=== PATIENT | male | born 1960 | race Caucasian/White ===

== ENCOUNTER 2020-12-10 21:08 | Emergency (ER) | payer BC, OTHER ==
[2020-12-10] MEDS ORDERED: Lidocaine 1% with EPINEPHrine 1:100,000 20 ML MDV INJECT ONE (21:31)
[2020-12-10] MEDS ORDERED: Bupivacaine 0.5% 10 ML SDV INJECT ONE (21:31)
[2020-12-10] MEDS ORDERED: Lidocaine 1% with EPINEPHrine 1:100,000 10 ML MDV ONE (21:36)
[2020-12-10] MEDS ORDERED: Lisinopril 10 MG Tab PO ONE (21:38)
[2020-12-10] MEDS ORDERED: Hydrochlorothiazide 12.5 MG Cap PO STA (21:39)
--- NOTE | 2020-12-10 21:44 | EDM.PDOC ---
ED HPI GENERAL MEDICAL PROBLEM - General Chief Complaint: Laceration Stated Complaint: FELL AND HIT HEAD AND FACE ON WINDOW Time Seen by Provider: 12/10/20 21:18 Source of Information: Reports: Patient, Family (Sister + niece) History Limitations: Reports: No Limitations - History of Present Illness INITIAL COMMENTS - FREE TEXT/NARRATIVE: Mr. Cornejo is a very pleasant 60-year-old gentleman who now presents the ED stating that he tripped and fell at home around 19:30 this evening, striking his left forehead on the edge of a window frame, causing a laceration. He was not knocked unconscious. He denies having a headache. He states that he fell because he has difficulty walking due to chronic hip pain. The patient acknowledged that he drank 3 beers tonight, stating that that is normal for him on weekends. The patient reports that his last tetanus vaccination was about 6 years ago. Here in the ED, the patient's initial BP is found to be significantly elevated at 220/108, otherwise, he is hemodynamically stable, afebrile, saturating 98% on room air. He appears to be comfortable, in no acute distress. He states that he has a history of hypertension, untreated for the past 6 years. The patient reports that he falls often, due to chronic hip and shoulder pain. Otherwise, the patient denies having a recent fever, chills, sore throat, ear pain, nasal or sinus congestion, cough, dyspnea, chest pain, palpitations, nausea, vomiting, constipation, diarrhea, abdominal pain, urinary symptoms, recent weight gain or weight loss, recent bloody bowel movements or black bowel movements, headaches, or rashes. The patient does not have a PCP. - Related Data Allergies Allergy/AdvReac Type Severity Reaction Status Date / Time No Known Allergies Allergy Verified 12/10/20 21:18 Home Meds: Home Meds Acetaminophen [Tylenol Extra Strength] 500 mg PO DAILY 12/10/20 [History] Lisinopril/Hydrochlorothiazide [Lisinopril-HCTZ 10-12.5 MG] 1 tab PO BEDTIME #30 tablet 12/10/20 [Rx] Past Medical History Cardiovascular History: Reports: Hypertension (untreated) - Past Surgical History HEENT Surgical History: Reports: Naso-Sinus Surgery (Rhinoplasty) Social & Family History - Tobacco Use Tobacco Use Status *Q: Never Tobacco User - Caffeine Use Caffeine Use: Reports: Soda - Alcohol Use Alcohol Use History: Yes Days Per Week of Alcohol Use: 2 Days Per Week of Alcohol Use Comment: weekends Number of Drinks Per Day: 3 Total Drinks Per Week: 6 - Recreational Drug Use Recreational Drug Use: No - Living Situation & Occupation Living situation: Reports: Single, Alone Occupation: Employed ([employer]ator) ED ROS GENERAL - Review of Systems Review Of Systems: Comprehensive ROS is negative, except as noted in HPI. Musculoskeletal: Reports: Back Pain (chronic), Joint Pain (shoulder) ED EXAM, SKIN/RASH Exam: See Below Exam Limited By: No Limitations General Appearance: Alert, WD/WN, No Apparent Distress Eye Exam: Bilateral Eye: EOMI, Normal Inspection, PERRL Ears: Normal External Exam, Hearing Grossly Normal Nose: Normal Inspection Throat/Mouth: Normal Inspection, Normal Lips, Normal Voice, No Airway Compromise Head: Normocephalic, Other (4 cm linear laceration to the left forehead) Neck: Normal Inspection, Full Range of Motion Respiratory/Chest: No Respiratory Distress, Lungs Clear, Normal Breath Sounds, No Accessory Muscle Use Cardiovascular: Normal Peripheral Pulses, Regular Rate, Rhythm, No Edema, No Gallop, No JVD, No Murmur, No Rub Peripheral Pulses: 3+: Radial (L), Radial (R) GI/Abdominal: Normal Bowel Sounds, Soft, Non-Tender, No Organomegaly, No Distention, No Abnormal Bruit, No Mass Back Exam: Normal Inspection, Full Range of Motion, NT Extremities: Normal Inspection, Normal Range of Motion, No Pedal Edema, Normal Capillary Refill Neurological: Alert, Oriented, CN II-XII Intact, Normal Cognition, No Motor/Sensory Deficits Psychiatric: Normal Affect Skin: Warm, Dry, Normal Color, No Rash ED SKIN PROCEDURES - Laceration/Wound Repair Left Forehead Appearance: Subcutaneous, Linear, Clean Anesthetic Type: Local Local Anesthesia - Lidocaine (Xylocaine): 1% with EPI (50:50 admixture) Local Anesthesia - Bupivicaine (Marcaine): 0.5% Plain (50:50 admixture) Local Anesthetic Volume: 1cc Skin Prep: Providone-Iodine (Betadine) Exploration/Debridement/Repair: Wound Explored, In a Bloodless Field, Explored to Base, No Foreign Material Found Closed with: Sutures Lac/Wound length In cm: 4.0 Suture Size: 3-0 # of Sutures: 15 Suture Type: Nylon (Ethilon), Running, Simple Drain Placement: No Sterile Dressing Applied: Nurse Tetanus Status Addressed: Yes Complications: No Course - Vital Signs Last Recorded V/S: Last Vital Signs Temp 35.9 C L 12/10/20 21:15 Pulse 90 12/10/20 21:15 Resp 16 12/10/20 21:15 BP 200/102 H 12/10/20 22:05 Pulse Ox 98 12/10/20 21:15 - Orders/Labs/Meds Meds: Medications Discontinued Medications Generic Name Dose Route Start Last Admin Trade Name Clemencia PRN Reason Stop Dose Admin Bupivacaine HCl 10 ml 12/10/20 21:31 12/10/20 21:44 Bupivacaine 0.5% 10 Ml Sdv INJECT 12/10/20 21:32 10 ml ONETIME ONE Administration Hydrochlorothiazide 12.5 mg 12/10/20 21:39 12/10/20 22:04 Hydrochlorothiazide 12.5 Mg Cap PO 12/10/20 21:40 12.5 mg ONETIME STA Administration Lidocaine/Epinephrine 20 ml 12/10/20 21:31 12/10/20 21:51 Lidocaine 1% With Epinephrine 1:100,000 20 Ml Mdv INJECT 12/10/20 21:32 20 ml ONETIME ONE Administration Lidocaine/Epinephrine Confirm 12/10/20 21:36 12/10/20 21:52 Lidocaine 1% With Epinephrine 1:100,000 10 Ml Mdv Administered 12/10/20 21:37 Not Given Dose 20 ml .ROUTE .STK-MED ONE Lidocaine/Epinephrine 10 ml 12/10/20 21:46 12/10/20 21:53 Lidocaine 1% With Epinephrine 1:100,000 10 Ml Mdv INJECT 12/10/20 21:47 Not Given ONETIME ONE Lisinopril 10 mg 12/10/20 21:38 12/10/20 22:05 Lisinopril 10 Mg Tab PO 12/10/20 21:39 10 mg ONETIME ONE Administration - Re-Assessments/Exams Free Text/Narrative Re-Assessment/Exam: 12/10/20 21:40 As above, the patient tripped and fell around 1930 this evening, striking his left forehead on the edge of a window frame, suffering a 4 cm laceration. No loss of consciousness, and the patient is able to provide a good history with no perseveration. The laceration will require suturing, therefore I have ordered bupivacaine 0.5% without epinephrine and lidocaine 1% with epinephrine. The patient states that his last tetanus vaccination was about 6 years ago, therefore he does not need a booster. His initial BP is significantly elevated at 224/108. He states that he has a history of hypertension untreated for the past 6 years. He states that he does not have a PCP. I explained that I would like to treat his hypertension, but that it is probably harmful to just treated tonight and not continue to treat it. The patient stated that he would be willing to take an antihypertensive medication if I were to prescribe it for him. I will therefore start him on lisinopril/hydrochlorothiazide 10/12.5. 12/10/20 22:15 A sterile field was made using Betadine and sterile drapes in the usual fashion. The wound was infiltrated with a 50-50 admixture of bupivacaine 0.5% without epinephrine and lidocaine 1% with epinephrine. The wound was then closed with 15 simple running sutures using 3-0 Ethilon, to good cosmetic effect. The patient tolerated the procedure well. The sutures should be ready for removal in 7 days. The patient was started on 10 mg lisinopril and 12.5 mg hydrochlorothiazide. I will discharge him home with a prescription for lisinopril/HCTZ 10/12.5, 1 tab po QHS #30, NR. The patient wants to follow-up at the [facility] - I would like him to follow-up in 1 week for both suture removal, and checking his blood pressure. Departure - Departure Time of Disposition: 22:18 Disposition: Home, Self-Care 01 Condition: Good Clinical Impression: Fall at home, Laceration of forehead, Hypertension - Discharge Information *PRESCRIPTION DRUG MONITORING PROGRAM REVIEWED*: Not Applicable *COPY OF PRESCRIPTION DRUG MONITORING REPORT IN PATIENT BRIAN: Not Applicable Prescriptions: Lisinopril/Hydrochlorothiazide [Lisinopril-HCTZ 10-12.5 MG] 1 tab PO BEDTIME #30 tablet Instructions: Hypertension, Adult, [id number], Laceration Care, Adult, [id number] Referrals: PCP,None [Primary Care Provider] - Forms: ED Department Discharge Additional Instructions: You were seen in the emergency room after falling at home, cutting your left forehead. Your laceration was closed with 15 sutures in the ER. Keep the wound clean with ordinary soap and water when you bathe. Pat dry, then either leave alone or cover with a sterile bandage, daily. You do not need to apply antibiotic ointment to the wound. Your blood pressure was found to be significantly elevated at 224/108 in the ER. You have been started on the blood pressure medicine lisinopril/HCTZ 10/12.5 in the ER, and a prescription for the same has been sent to the [facility] pharmacy, located just south and across the [address] from [facility]. Take 1 tablet of lisinopril/HCTZ 10/12.5 every evening, at bedtime, starting tomorrow night, 12/11/2020, as prescribed. As discussed, it is very common for patients to feel poorly after they are started on blood pressure medication. We recommend that you continue to take the medication anyway. Your sutures should be ready for removal by 12/19/2020. Please follow-up at the [facility] in [place] on 12/19/2020 for suture removal, as well as a check on your blood pressure. Call [phone] to make an appointment. If any other problems, please do not hesitate to return to the ER. Sepsis Event Note (ED) - Evaluation Sepsis Screening Result: No Definite Risk - Focused Exam Vital Signs: Vital Signs Temp Pulse Resp BP BP Pulse Ox 12/10/20 22:05 200/102 H 12/10/20 21:15 35.9 C L 90 16 224/108 H 98
[2020-12-10] MEDS ORDERED: Lidocaine 1% with EPINEPHrine 1:100,000 10 ML MDV INJECT ONE (21:46)
== END 2020-12-10 22:32 | disposition home or self-care (01) ==
LOC: JD.ED 21:08
DX: S01.81XA Laceration without foreign body of other part of head, initial encounter (principal); I10 Essential (primary) hypertension; Z79.899 Other long term (current) drug therapy; W01.190A Fall on same level from slipping, tripping and stumbling with subsequent striking against furniture, initial encounter; Y92.009 Unspecified place in unspecified non-institutional (private) residence as the place of occurrence of the external cause
CPT/HCPCS: 12013; 99282; A9270; J3490; 99283